=== PATIENT | male | born 1970 | race Caucasian/White ===

== ENCOUNTER 2022-05-20 14:44 | Emergency (ER) | payer BC ==
[~2022-05-20] VITALS: Ht 185.4 cm; Wt 106.6 kg
[2022-05-20 14:47] VITALS: BP 142/92
[2022-05-20] MEDS ORDERED: HYDROmorphone PFS 2 MG/ML SYR IVP ONE ×2 (14:50→15:50)
[2022-05-20] MEDS ORDERED: NACL 0.9% 1,000 ML IV ONE (14:50)
--- NOTE | 2022-05-20 15:00 | NUR ---
51 y/o male c/o left plank pain w/ hx of kidney stones x a couple of weeks, worsening today. Reports 7/10 sharp, intermittent pain, that radiates to scrotum. Denies dysuria or hematuria. Denies taking medication for pain. Denies fever, chills, sob, nv, cp. NKA PMH: HTN, rheumatoid arthritis, [place]
--- NOTE | 2022-05-20 15:03 | NUR ---
LAB AT BEDSIDE
--- NOTE | 2022-05-20 15:12 | NUR ---
TAKEN TO CT VIA W/C
[2022-05-20 15:14] LABS: BASOPHILS % (AUTO) 0.6 % (0.0-2.0); EOSINOPHILS # (AUTO) 0.1 K/uL (0-0.4); EOSINOPHILS % (AUTO) 1.7 % (0.0-4.0); HEMATOCRIT 45.4 % (36-52); HEMOGLOBIN 15.6 g/dL (12.0-18.0); LYMPHOCYTES # (AUTO) 1.6 K/uL (2.0-11.5); LYMPHOCYTES % (AUTO) 29.7 % (20.5-51.1); MEAN CORPUSCULAR HEMOGLOBIN 30 pg (27-31); MEAN CORPUSCULAR HGB CONC 34 g/dL (33-37); MEAN CORPUSCULAR VOLUME 88.4 fL (80-94); MONOCYTES # (AUTO) 0.4 K/uL (0.8-1.0); MONOCYTES % (AUTO) 8.1 % (1.7-9.3); NEUTROPHILS # (AUTO) 3.2 K/uL (1.8-7.7); NEUTROPHILS % (AUTO) 59.9 % (42.2-75.2); PLATELET COUNT (AUTO) 181 K/uL (140-450); RED BLOOD CELL COUNT(AUTO) 5.14 MIL/uL (4.20-6.10); RED CELL DISTRIBUTION WIDTH 13.5 % (11.6-13.7); WHITE BLOOD COUNT (AUTO) 5.3 K/uL (4.8-10.8)
--- NOTE | 2022-05-20 15:19 | NUR ---
returned from ct via w/c
--- NOTE | 2022-05-20 15:22 | NUR ---
ultrasound at bedside
[2022-05-20 15:27] LABS: ALBUMIN 4.3 g/dL (3.4-5.0); ANION GAP 13.3 (8-16); CARBON DIOXIDE 26.1 mmol/L (21-32); CREATININE 1.7 mg/dL (0.6-1.3); POTASSIUM 4.4 mmol/L (3.5-5.1); TOTAL BILIRUBIN 1.6 mg/dL (0.0-1.0)
[2022-05-20 15:30] LABS: BILIRUBIN,URINE NEGATIVE (NEGATIVE); BLOOD, URINE TRACE-I (NEGATIVE); COLOR,URINE YELLOW (YELLOW); LEUKOCYTE ESTERASE ,URINE TRACE (NEGATIVE); NITRITE, URINE NEGATIVE (NEGATIVE); UGLUCOSE NEGATIVE (NEGATIVE)
[2022-05-20 15:31] LABS: APPEARANCE,URINE HAZY (CLEAR)
[2022-05-20 15:50] LABS: RBC,URINE NONE SEEN /HPF (0-5)
[2022-05-20] MEDS ORDERED: cefTRIAXone 1,000 MG VIAL ONE (17:00)
[2022-05-20] MEDS ORDERED: CIPR500T4 PO (17:48)
[2022-05-20] MEDS ORDERED: DOCU-300 PO (17:48)
[2022-05-20] MEDS ORDERED: TAMS0.4C96 PO (17:48)
[2022-05-20] MEDS ORDERED: HYDR-5191 PO (17:48)
[2022-05-20] MEDS ORDERED: ONDANSETRON 4 MG/2 ML VIAL ONE (18:13)
[2022-05-20] MEDS ORDERED: ONDANSETRON 4 MG/2 ML VIAL IVP ONE (18:20)
[2022-05-20 18:25] VITALS: BP 148/82
--- NOTE | 2022-05-20 18:25 | NUR ---
Patient discharged with v/s stable. Written and verbal after care instructions about Kidney Stones, CKD, preventing chronic kidney disease given and explained. Patient alert, oriented and verbalized understanding of instructions. Ambulatory with steady gait. All questions addressed prior to discharge. ID band removed. Patient advised to follow up with PMD. Rx of Colace, Cipro, [place], Flomax given. Patient educated on indication of medication including possible reaction and side effects. Opportunity to ask questions provided and answered.
== END 2022-05-20 18:25 | disposition home or self-care (01) ==
LOC: MED 14:44
DX: N20.1 Calculus of ureter (principal); N17.9 Acute kidney failure, unspecified; K80.20 Calculus of gallbladder without cholecystitis without obstruction; I10 Essential (primary) hypertension; Z87.442 Personal history of urinary calculi
CPT/HCPCS: 36415; 74176; 76770; 80053; 81001; 83690; 85025; 87086; 96361; 96365; 96375; 96376; 99284; J0696; J1170; J2405; J7030; Q0092

== ENCOUNTER 2023-06-15 12:14 | Emergency (ER) | payer BC ==
[~2023-06-15] VITALS: Ht 185.4 cm; Wt 108.9 kg
[~2023-06-15 12:14] MED LIST: CIPR500T4 PO; DOCU-300 PO; HYDR-5191 PO; TAMS0.4C96 PO
[2023-06-15 12:21] VITALS: BP 173/84; PULSE 59; RESP 24; TEMP 98.4; O2SAT 96
[2023-06-15] MEDS ORDERED: LIDOCAINE MPF 1% 5 ML ONE (12:21)
[2023-06-15] MEDS ORDERED: LIDOCAINE 1% 500 MG/ 50 ML VIAL INJ ONE (12:25)
[2023-06-15] MEDS ORDERED: fentaNYL citrate 0.05 MG/ML VIAL IVP ONE ×2 (12:25→13:05)
[2023-06-15] MEDS ORDERED: LIDOCAINE MPF 1% 10 MG/ML VIAL INJ ONE (13:00)
[2023-06-15] MEDS ORDERED: ceFAZolin 1,000 MG VIAL ONE (13:16)
[2023-06-15] MEDS ORDERED: ACET-8905 PO (14:26)
[2023-06-15] MEDS ORDERED: CEPH-588 PO (14:26)
[2023-06-15] MEDS ORDERED: BACITRACIN OINT 500 UNITS/GM PKT TP ONE (14:35)
[2023-06-15 15:13] VITALS: BP 150/79; PULSE 56; RESP 20; TEMP 98.2; O2SAT 5
== END 2023-06-15 15:14 | disposition home or self-care (01) ==
LOC: MED 12:14
DX: S61.211A Laceration without foreign body of left index finger without damage to nail, initial encounter (principal); W26.8XXA Contact with other sharp object(s), not elsewhere classified, initial encounter; Y93.89 Activity, other specified; Y92.89 Other specified places as the place of occurrence of the external cause; Y99.8 Other external cause status
CPT/HCPCS: 12002; 73140; 90471; 90715; 96365; 96375; 99284; J0690; J2001; J3010; Q0092